=== PATIENT | male | born 1965 | race African-American/Black ===

== ENCOUNTER 2017-01-05 09:30 | Inpatient (IN) | payer OTHER ==
[~2017-01-05] VITALS: Ht 180.3 cm; Wt 90.7 kg
[2017-01-05] VITALS (7 sets, daily range): BP systolic 158–206; BP diastolic 87–139
--- NOTE | ~2017-01-05 | EKG ---
[address] [place] [employer] [address] ELECTROCARDIOGRAM REPORT Name: GIUSEPPE CARL Room #: 457-P ADM IN M.R.#: [id number] Admission: 01/05/17 Attend Phys: Neto Laws DO Discharge: Date of : 63 Report #: [id number] THIS REPORT FOR: //name// [facility] ED Test Date: 2017-01-05 Test Time: 10:13:20 Pat Name: GIUSEPPE CARL Department: Room: [facility] Gender: M [employer] Supervisor: Gertrude BAUMANN : 1965 Requested By: Giancarlo Mays Order Number: [id number] MD: Xu Epperson Measurements Intervals [place] Rate: 67 P: 45 TN: 137 QRS: 54 QRSD: 93 T: 55 QT: 441 QTc: 466 Interpretive Statements Sinus rhythm Left atrial enlargement Left ventricular hypertrophy ST elev, probable normal early repol pattern Baseline wander in lead(s) V4 No previous ECG available for comparison Electronically Signed On 01-06-2017 12:39:58 CDT by uX Epperson [email or web address] <ELECTRONICALLY SIGNED> By: Xu Epperson MD 01/06/17 1239 [id number] Xu Epperson MD /AXEL
--- NOTE | ~2017-01-05 | 2DMMODE ---
[facility] [address] [email or web address] [address] 2 D/M-MODE ECHOCARDIOGRAM Name: GIUSEPPE CARL RAY Room #: 457-P [facility] IN M.R.#: [id number] Admission: 01/05/17 Attend Phys: Neto Laws, Discharge: Date of : 63 Date of Service: 01/05/17 1642 Report #: [id number] THIS REPORT FOR: //name// APPROVED REPORT Study performed: 01/05/2017 15:10:57 EXAM: Comprehensive 2D, Doppler, and color-flow Echocardiogram Patient Location: Bedside Room #: [facility] Status: routine BSA: 2.11 HR: 63 bpm BP: 174/94 mmHg Other Information Study Quality: Good Indications Hypertension/HDD 2D Dimensions RVDd: 37.72 mm LVEF(%): 50.23 (>50%) IVSd: 12.59 (7-11mm) LVOT Diam: 19.15 (18-24mm) LVDd: 51.49 mm PWd: 12.76 (7-11mm) Ascending Ao: 29.69 (22-36mm) LVDs: 38.27 (25-40mm) Aortic Root: 30.12 mm IVC: 19.00 mm [place] LVEF: 50.23 % Volumes Left Atrial Volume (Systole) Single Plane 4CH: 124.85 mL Single Plane 2CH: 75.05 mL LA ESV Index: 49.00 mL/m2 Aortic Valve AoV Peak Yo.: 1.63 m/s AO Peak Gr.: 10.63 mmHg LVOT Max P.35 mmHg LVOT Max V: 1.16 m/s TERRIE Vmax: 2.04 cm2 Mitral Valve E/A Ratio: 1.6 MV Decel. Time: 215.90 ms MV E Max Yo.: 0.99 m/s [facility] [place] [address] 2 D/M-MODE ECHOCARDIOGRAM Name: GIUSEPPE CARL DENTON Room #: 457-P [facility] IN .R.#: [id number] Admission: 01/05/17 Attend Phys: Neto Laws, Discharge: Date of : 63 Date of Service: 01/05/17 1642 Report #: [id number] MV A Yo.: 0.62 m/s MV PHT: 62.61 ms IVRT: 83.04 ms Pulmonary Valve PV Peak Yo.: 1.39 m/s PV Peak Gr.: 7.73 mmHg FL End Vmax: 1.71 m/s Pulmonary Vein P Vein S: 0.70 m/s P Vein A: 0.35 m/s P Vein D: 0.51 m/s P Vein A Dur.: 133.8 msec P Vein S/D Ratio: 1.37 Tricuspid Valve TR Peak Yo.: 3.14 m/s TR Peak Gr.: 39.52 mmHg PA Pressure: 45.00 mmHg Left Ventricle The left ventricle is normal size. Mild concentric left ventricular hypertrophy. The left ventricular systolic function is normal. The left ventricular ejection fraction is within the normal range. LVEF is 55-60%. Grade II - pseudonormal filling dynamics. Right Ventricle The right ventricle is normal size. The right ventricular systolic function is normal. Atria Left atrium is dilated. The right atrium size is normal. Aortic Valve The aortic valve is normal in structure. No aortic regurgitation is present. There is no aortic valvular stenosis. Mitral Valve The mitral valve is normal in structure. Trace mitral regurgitation. No evidence of mitral valve stenosis. Tricuspid Valve The tricuspid valve is normal in structure. Mild tricuspid regurgitation. Estimated PAP was 45 mmHg. Pulmonic Valve The pulmonary valve is normal in structure. Trace pulmonic regurgitation. [facility] [address] [place] [address] 2 D/M-MODE ECHOCARDIOGRAM Name: GIUSEPPE CARL Room #: 457-P [facility] IN [facility]#: [id number] Admission: 01/05/17 Attend Phys: Neto Laws, Discharge: Date of : 63 Date of Service: 01/05/17 1642 Report #: [id number] Great Vessels The aortic root is normal in size. IVC is normal in size and collapses >50% with inspiration. Pericardium There is no pericardial effusion. <Conclusion> The left ventricle is normal size. Mild concentric left ventricular hypertrophy. The left ventricular systolic function is normal. The right ventricle is normal size. Left atrium is dilated. The aortic valve is normal in structure. Trace mitral regurgitation. Mild tricuspid regurgitation. Estimated PAP was 45 mmHg. There is no pericardial effusion. <ELECTRONICALLY SIGNED> By: Xu Epperson MD 01/05/17 1642 41 41 Xu Epperson MD /INF
[~2017-01-05 09:30] MED LIST: NORCO 5-325 TA1 EACH PO; PENICILLIN VK500 MG PO
[2017-01-05 10:14] LABS: HEMATOCRIT 40.2 % (42.0-52.0); HEMOGLOBIN 13.9 gm/dL (14.0-18.0); MCH 33.7 pg (26.0-34.0); MCHC 34.6 g/dL (28.0-37.0); MCV 97.5 fL (80.0-100.0); RBC 4.13 mil/uL (4.50-6.00); RDW 12.9 % (10.5-14.5); WBC 6.8 thou/uL (4.0-11.0)
[2017-01-05 10:15] LABS: ANION GAP 10 mmol/L (7-16); BUN 9 mg/dL (7-18); CALCIUM 8.9 mg/dL (8.5-10.1); CHLORIDE 103 mmol/L (98-107); CO2 27 mmol/L (21-32); GLUCOSE 101 mg/dL (74-106); SODIUM 140 mmol/L (136-145)
[2017-01-05 10:23] LABS: TROPONIN-I < 0.04 ng/mL (<0.04-0.07)
[2017-01-05 11:19] LABS: AMP/METHAMP Negative (Negative); BARBITURATES Negative (Negative); BENZODIAZEPINES Negative (Negative); COCAINE POSITIVE (Negative); METHADONE Negative (Negative); OPIATES Negative (Negative); PCP Negative (Negative); THC Negative (Negative)
[2017-01-06 03:14] VITALS: BP 162/95
[2017-01-06 03:47] LABS: ABSOLUTE NEUTROPHILS 3.4 thou/uL (1.4-8.2); BASOPHILS 0.8 % (0.0-2.0); HEMATOCRIT 43.8 % (42.0-52.0); HEMOGLOBIN 14.6 gm/dL (14.0-18.0); LYMPHOCYTES 33.3 % (24.0-44.0); MCH 32.9 pg (26.0-34.0); MCHC 33.3 g/dL (28.0-37.0); MONOCYTES 7.9 % (1.0-8.0); PLATELET COUNT 238 thou/uL (150-400); RBC 4.42 mil/uL (4.50-6.00); RDW 13.2 % (10.5-14.5); WBC 6.1 thou/uL (4.0-11.0)
[2017-01-06 03:57] LABS: CALCIUM 9.7 mg/dL (8.5-10.1); CREATININE 1.2 mg/dL (0.7-1.3); POTASSIUM 3.9 mmol/L (3.5-5.1)
[2017-01-06 04:00] LABS: MANUAL DIFF NO
[2017-01-06 07:58] VITALS: BP 141/91
[2017-01-06] MEDS ORDERED: NORVASC5 MG PO (10:46)
[2017-01-06] MEDS ORDERED: COZAAR100 MG PO (10:46)
[2017-01-06 12:09] VITALS: BP 141/91
[2017-01-06 12:15] VITALS: BP 140/97
== END 2017-01-06 16:13 | disposition home or self-care (01) | DRG 305 ==
LOC: ER 09:30 → EROBS 11:01 → 4W 12:42
PROVIDERS: Emergency Medicine; Family Medicine
DX: I16.0 Hypertensive urgency (principal); F10.129 Alcohol abuse with intoxication, unspecified; F14.10 Cocaine abuse, uncomplicated; R00.1 Bradycardia, unspecified; I10 Essential (primary) hypertension; F20.9 Schizophrenia, unspecified; F17.210 Nicotine dependence, cigarettes, uncomplicated; Z71.6 Tobacco abuse counseling; Z86.19 Personal history of other infectious and parasitic diseases
CPT/HCPCS: 10045